=== PATIENT | female | born 2005 | race Caucasian/White ===

== ENCOUNTER → 2025-01-04 07:38 | Outpatient (REF) | payer OTHER, SELFPAY | LOC: HWRAD 07:38 | PROVIDERS: ATTENDING PHYSICIAN Nurse Practitioner Adult Health | DX: R14.1 Gas pain (principal); R10.13 Epigastric pain; R79.89 Other specified abnormal findings of blood chemistry; E78.00 Pure hypercholesterolemia, unspecified | CPT/HCPCS: 76700 ==